=== PATIENT | male | born 1985 | race Hispanic/Latino ===

== ENCOUNTER 2018-06-19 09:55 | Emergency (ER) | payer BC, OTHER ==
[~2018-06-19] VITALS: Ht 172.7 cm; Wt 113.4 kg
[2018-06-19 10:22] VITALS: BP 148/70
== END 2018-06-19 10:32 | disposition home or self-care (01) ==
LOC: FSED 09:55
DX: K02.9 Dental caries, unspecified (principal)
CPT/HCPCS: 99282